=== PATIENT | female | born 1930 | race Caucasian/White ===

== ENCOUNTER 2016-06-15 | Outpatient (CLI) | END 2016-06-15 09:11 | disposition critical access hospital (66) | CPT/HCPCS: A0425; A0429 ==

== ENCOUNTER 2016-06-15 09:56 | Observation (INO) | END 2016-06-16 14:10 | disposition home or self-care (01) | CPT/HCPCS: 36415; 71020; 80048; 80053; 83690; 84484; 85025; 87040; 87275; 87276; 93005; 94640; 96361; 96374; 96375; 99284; 99285; A9270; G0378; J7620 ==